=== PATIENT | male | born 1945 | race Caucasian/White ===

== ENCOUNTER 2019-12-25 11:40 | Emergency (ER) | payer MEDICARE ==
--- NOTE | 2019-12-25 15:26 | ED ---
Back Pain - HPI Summary HPI Summary: The patient is a 74 y/o male presenting to [facility] with a chief complaint of right flank pain onset last night with persistency. He reports that when the pain began last night, he placed a heating pad without any relief. Today, the pain has worsened rated 3/10 in severity. The pain is aggravated by deep breathing, lying down, and sitting, and the pain is alleviated by standing. He denies any issues with BMs, bowel or bladder incontinence, fevers, nausea, vomiting, or edema in the lower extremities. He endorses dark and odorous urine. He notes that his son had similar symptoms but was diagnosed with gallbladder issues. PMHx: kidney stones with lithotripsy, BPH, right inguinal hernia. Former smoker, daily EtOH, no substance use. Medications reviewed. Allergies noted. - History of Current Complaint Chief Complaint: EDBackInjuryPain Stated Complaint: LOW BACK PAIN PER PT Time Seen by Provider: 12/25/19 15:06 Hx Obtained From: Patient Onset/Duration: Sudden Onset, Still Present Onset/Duration: Started Hours Ago, Still Present Timing: Constant Back Pain Location: Is Discrete @ - right flank Severity Initially: Mild Severity Currently: Moderate Pain Intensity: 4 Pain Scale Used: 0-10 Numeric Character: Sharp Aggravating Symptom(s): Other - lying, sitting, deep breathing Alleviating Symptom(s): Other - standing Associated Signs And Symptoms: Positive: Flank Pain - right. Negative: Fever, Bladder Incontinence, Bowel Incontinence, Other - nausea, vomiting - Allergies/Home Medications Allergies/Adverse Reactions: Allergies Allergy/AdvReac Type Severity Reaction Status Date / Time Unable to Assess Allergy Verified 12/25/19 11:53 PMH/Surg Hx/FS Hx/Imm Hx Endocrine/Hematology History: Denies: Hx Diabetes Cardiovascular History: Denies: Hx Hypertension GI History: Reports: Other GI Disorders - inguinal hernia History: Reports: Hx Benign Prostatic Hyperplasia, Hx Kidney Stones - lithotripsy - Surgical History Surgical History: Yes Surgery Procedure, Year, and Place: lithotripsy kidney stones Infectious Disease History: No Infectious Disease History: Denies: Traveled Outside the [place] in Last 30 Days - Family History Known Family History: Positive: Other - gallbladder - Social History Alcohol Use: Daily Hx Substance Use: No Substance Use Type: Reports: None Hx Tobacco Use: Yes Smoking Status (MU): Former Smoker Review of Systems Negative: Fever, Chills Negative: Vomiting, Nausea, Other - bowel incontinence Positive: flank pain - right, other - dark and odorous urine. Negative: incontinence Negative: Edema All Other Systems Reviewed And Are Negative: Yes Physical Exam - Summary Physical Exam Summary: Constitutional: Well-developed, Well-nourished, Alert. (-) Distressed Skin: Warm, Dry HENT: Normocephalic; Atraumatic Eyes: Conjunctiva normal Neck: Musculoskeletal ROM normal neck. (-) JVD, (-) Stridor, (-) Tracheal deviation Cardio: Rhythm regular, rate normal, Heart sounds normal; Intact distal pulses; The pedal pulses are 2+ and symmetric. Radial pulses are 2+ and symmetric. Pulmonary/Chest wall: Effort normal. (-) Respiratory distress, (-) Wheezes, (-) Rales Abd: Soft, (-) tenderness, (-) Distension, (-) Guarding, (-) Rebound, Small reducible hernia in the right inguinal region Back: Patient localizing pain to the right flank without tenderness to palpation or percussion, (-) CVA tenderness Musculoskeletal: (-) Edema Neuro: Alert, Oriented x3 Psych: Mood and affect Normal : Normal penis, Circumcised, Normal testes, No swelling or tenderness Triage Information Reviewed: Yes Vital Signs On Initial Exam: Initial Vitals Temp Pulse Resp BP Pulse Ox 99.1 F 92 16 157/75 94 12/25/19 11:49 12/25/19 11:49 12/25/19 11:49 12/25/19 11:49 12/25/19 11:49 Vital Signs Reviewed: Yes Procedures - Sedation Patient Received Moderate/Deep Sedation with Procedure: No Diagnostics - Vital Signs Vital Signs Temp Pulse Resp BP Pulse Ox 12/25/19 14:30 100.4 F 89 18 108/74 95 12/25/19 11:49 99.1 F 92 16 157/75 94 - Laboratory Result Diagrams: 12/25/19 15:55 12/25/19 15:55 Lab Statement: Any lab studies that have been ordered have been reviewed, and results considered in the medical decision making process. Back Pain Course/Dx - Course Course Of Treatment: 74 y/o male presenting with right flank pain onset last night worsening today accompanied by odorous and dark urine. Denies changes in stool, fevers, nausea, vomiting, edema. No symptoms. History of kidney stones with lithotripsy, right inguinal hernia, BPH. Physical exam is significant for patient localizing pain to the right flank without tenderness to palpation or percussion, no CVA tenderness, small reducible hernia in the right inguinal region, normal exam. Blood work reveals elevated WBCs of 12.8 , elevated neutrophils 10.8, elevated monocytes of 1.3, total bili of 1.7. UA obtained to reveal 1+ protein, 2+ ketones, 1+ blood. Patient administered lactated ringers and Toradol for pain. The patient is a sign-out from Dr. Humphrey Yao MD, to Dr. Carine Hirsch MD, at change of shift at 1900 on 12/25/2019, pending Abd/Pel CT results and disposition. - Diagnoses Differential Diagnosis/HQI/PQRI: Positive: Other - renal calculi Provider Diagnoses: Flank pain Discharge ED - Sign-Out/Discharge Documenting (check all that apply): Sign-Out Patient Signing out patient TO: Carine Hirsch - Patient is a sign-out to Dr. Carine Hirsch MD, at 1900 on 12/25/2019, pending Abd/Pel CT results and disposition. - Discharge Plan Condition: Stable Referrals: Dunia Johnson MD [Primary Care Provider] - - Attestation Statements Document Initiated by Scribe: Yes Documenting Scribe: Alessia Guerra Provider For Whom Valdo is Documenting (Include Credential): Dr. Humphrey Yao MD Scribe Attestation: IAlessia, scribed for Dr. Humphrey Yao MD on 12/25/19 at 1904. Status of Scribe Document: Ready
[2019-12-25] MEDS ORDERED: Ketorolac INJ* 30 MG/ML 1 ML VIAL IV PUSH ONE (15:48)
[2019-12-25] MEDS ORDERED: Lactated Ringers 1000 ML Bag* 1,000 ML IV ONE (15:48)
[2019-12-25 16:03] LABS: ABS Lymphocytes 0.6 10^3/ul (1.0-4.8); ABS Monocytes 1.3 10^3/ul (0-0.8); ABS Neutrophils 10.8 10^3/ul (1.5-7.7); Hematocrit 41 % (42-52); Hemoglobin 14.2 g/dL (14.0-18.0); Mean Corpuscular HGB Conc 35 g/dL (31-36); Mean Corpuscular Hemoglobin 33 pg (27-31); Mean Corpuscular Volume 96 fL (80-94); Mean Platelet Volume 7.2 fL (7.4-10.4); Platelet Count 213 10^3/uL (150-450); Red Blood Count 4.28 10^6 /uL (4.18-5.48); Red Cell Distribution Width 13 % (10-15); White Blood Count 12.8 10^3/uL (3.5-10.8)
[2019-12-25 16:22] LABS: Urine Appearance Cloudy; Urine Bilirubin Negative (Negative); Urine Blood 1+ (Negative); Urine Color Yellow; Urine Glucose Negative (Negative); Urine Ketones 2+ (Negative); Urine Nitrite Negative (Negative); Urine Protein 1+(30 mg/dL) (Negative); Urine Specific Gravity 1.023 (1.010-1.030); Urine Urobilinogen Negative (Negative)
[2019-12-25 16:23] LABS: Albumin 3.9 g/dL (3.2-5.2); Albumin/Globulin Ratio 1.2 (1-3); BUN/Creatinine Ratio 17.7 (8-20); Calcium 8.9 mg/dL (8.6-10.3); EGFR African American 116.3 (>60); EGFR Non-African American 96.1 (>60); Globulin 3.2 g/dL (2-4); Indirect Bilirubin 1.3 mg/dL (0.3-1.0); Potassium 3.9 mmol/L (3.5-5.0); Total Bilirubin 1.7 mg/dL (0.2-1.0); Total Protein 7.1 g/dL (6.4-8.9)
[2019-12-25 16:40] LABS: Urine Bacteria Absent (Absent); Urine Red Blood Cell Trace(0-2/hpf) (Absent); Urine White Blood Cell Trace(0-5/hpf) (Absent)
--- NOTE | 2019-12-25 19:07 | ED ---
Progress - Progress Note Progress Note: This pt is a sign out from Dr. Yao to Dr. Hirsch at shift change [address] A/P interpretation and dispo. - Results/Orders Results/Orders: CT A/P: Right basilar infiltrate suggestive of pneumonia. No renal calculi or obstructive uropathy. Moderate prostatic enlargement. ED physician has reviewed this report. Re-Evaluation - Re-Evaluation First Eval Re-Evaluation Time: 19:26 Change: Improved Comment: I have discussed results with the patient and pain is resolved. Discussed symptoms that warrant immediate return to ED. Course/Dx - Course Course Of Treatment: This pt is a sign out from Dr. Yao to Dr. Hirsch at shift change 1900 12/25/[address] A/P interpretation and dispo. CT A/P shows the following: Right basilar infiltrate suggestive of pneumonia. No renal calculi or obstructive uropathy. Moderate prostatic enlargement. discussed at length with patient. He will be discharged home after being given Ceftin to treat his Dx of PNA. - Diagnoses Provider Diagnoses: Pneumonia Discharge ED - Sign-Out/Discharge Documenting (check all that apply): Patient Departure - discharge , Receiving Sign-Out Receiving patient FROM: Humphrey Yao - Discharge Plan Condition: Stable Disposition: HOME Prescriptions: Azithromyxin CHRIS (NF) [Z-Chris (Zithromax) 250 mg tabs #6] 2 tab PO .TODAY, THEN 1 DAILY #6 tab Cefuroxime 500 MG TAB (NF) [Ceftin 500 MG TAB (NF)] 500 mg PO BID #20 tab Patient Education Materials: Pneumonia (ED) Referrals: Dunia Johnson MD [Primary Care Provider] - 2 Days Additional Instructions: PLEASE FOLLOW UP WITH YOUR PRIMARY CARE PROVIDER IN 2-3 DAYS AND RETURN TO THE EMERGENCY DEPARTMENT FOR ANY NEW OR WORSENING SYMPTOMS. Take prescribed medications as directed. - Billing Disposition and Condition Condition: STABLE Disposition: Home - Attestation Statements Document Initiated by Scribe: Yes Documenting Scribe: Austin Multani Provider For Whom Scribe is Documenting (Include Credential): Carine Hirsch MD Scribe Attestation: Austin Ross, scribed for Carine Hirsch MD on 12/26/19 at 0233. Scribe Documentation Reviewed: Yes Provider Attestation: The documentation as recorded by the scribe, Austin Multani accurately reflects the service I personally performed and the decisions made by me, Carine Hirsch MD Status of Scribe Document: Viewed
[2019-12-25] MEDS ORDERED: cefTRIAXone(*) 2 GM in NS 0.9% 100 ML* 100 ML IVPB ONE (19:20)
[2019-12-25 20:46] VITALS: BP 133/54
== END 2019-12-25 20:45 | disposition home or self-care (01) ==
LOC: ED 11:40
DX: J18.9 Pneumonia, unspecified organism (principal); R10.84 Generalized abdominal pain; N40.0 Benign prostatic hyperplasia without lower urinary tract symptoms; Z87.891 Personal history of nicotine dependence; Z87.442 Personal history of urinary calculi
CPT/HCPCS: 36415; 74176; 80048; 80076; 81003; 81015; 83690; 85025; 87086; 96361; 96365; 96375; 99282; J0696; J1885

== ENCOUNTER 2019-12-31 18:37 | Observation (INO) | payer MEDICARE ==
--- OUTSIDE RECORDS SUMMARY | 2019-12-31 18:57 | XMS REPORT | Continuity of Care Document ---
:1945 External Reference #:[id number] Demographics Phone Unavailable Preferred Language Unknown Marital Status Unknown Scientologist Affiliation Unknown Race Unknown Ethnic Group Unknown Author Name Patricia Lopez Description No Information Available Social History Type Date Description Comments Sex Unknown Allergies, Adverse Reactions, Alerts Description No Information Available Medications Description No Information Available Immunizations Description No Information Available Vital Signs Description No Information Available Results Description No Information Available Procedures Description No Information Available Medical Devices Description No Information Available Encounters Description No Information Available Assessments Description No Information Available Plan of Treatment No Information Available Functional Status Description No Information Available Mental Status Description No Information Available Referrals Description No Information Available
[2019-12-31 19:00] LABS: ABS Eosinophils 0.2 10^3/ul (0-0.6); ABS Lymphocytes 1.1 10^3/ul (1.0-4.8); ABS Monocytes 0.8 10^3/ul (0-0.8); Eosinophil % 2.2 %; Hematocrit 41 % (42-52); Lymphocyte % 11.8 %; Mean Corpuscular HGB Conc 35 g/dL (31-36); Mean Corpuscular Hemoglobin 33 pg (27-31); Mean Corpuscular Volume 95 fL (80-94); Mean Platelet Volume 6.7 fL (7.4-10.4); Nucleated Red Blood Cells % 0.1; Platelet Count 344 10^3/uL (150-450); Red Blood Count 4.29 10^6 /uL (4.18-5.48); Red Cell Distribution Width 13 % (10-15)
--- NOTE | 2019-12-31 19:02 | ED ---
Shortness of Breath - HPI Summary HPI Summary: 74 year old M referred to [facility] complains of shortness of breath for several days. Patient had outpatient Chest CT done earlier today 12/31/2019 which showed PE. Patient was referred to the ED. He states his primary care provider ordered one because patient's friend was concerned about patient having hx atrial fibrillation and being recently dx pneumonia. Patient was seen last 12/25 in the ED, dx pneumonia, was placed on antibiotics, and discharged. Patient states he has been improving since then. He states chest tightness and painful breathing have improved. Patient denies pain or swelling in bilateral lower extremities. The patient rates the pain 1/10 in severity. Symptoms aggravated by exertion. Symptoms alleviated by prescription antibiotics. Medications reviewed. No hx DVT, PE, MT, diabetes, cardiac stent placement. - History of Current Complaint Chief Complaint: EDShortnessOfBreath Time Seen by Provider: 12/31/19 19:00 Hx Obtained From: Patient Onset/Duration: Lasting Days, Still Present Timing: Constant Current Severity: Mild Aggravating Factors: Other - exertion Alleviating Factors: Other - prescription antibiotics Associated Signs & Symptoms: Negative - pain or swelling in BLE - Allergy/Home Medications Allergies/Adverse Reactions: Allergies Allergy/AdvReac Type Severity Reaction Status Date / Time Unable to Assess Allergy Verified 12/31/19 18:41 PMH/Surg Hx/FS Hx/Imm Hx Endocrine/Hematology History: Denies: Hx Diabetes Cardiovascular History: Reports: Hx Atrial Fibrillation Denies: Hx Hypertension, Hx Myocardial Infarction Respiratory History: Reports: Hx Pneumonia GI History: Reports: Other GI Disorders - inguinal hernia History: Reports: Hx Benign Prostatic Hyperplasia, Hx Kidney Stones - lithotripsy Denies: Hx Renal Disease - Surgical History Surgery Procedure, Year, and Place: tonsils. lithotripsy Infectious Disease History: No Infectious Disease History: Denies: Traveled Outside the [place] in Last 30 Days - Family History Known Family History: Positive: Other - gallbladder - Social History Alcohol Use: Daily Alcohol Amount: ~1-2 glasses wine with dinner Hx Substance Use: No Substance Use Type: Reports: None Hx Tobacco Use: Yes Smoking Status (MU): Former Smoker Review of Systems Positive: Shortness Of Breath Musculoskeletal: Negative - pain or swelling in BLE All Other Systems Reviewed And Are Negative: Yes Physical Exam - Summary Physical Exam Summary: Constitutional: Well-developed, Well-nourished, Alert. (-) Distressed Skin: Warm, Dry HENT: Normocephalic; Atraumatic Eyes: Conjunctiva normal Neck: Musculoskeletal ROM normal neck. (-) JVD, (-) Stridor, (-) Tracheal deviation Cardio: Rhythm regular, rate normal, Heart sounds normal; Intact distal pulses; The pedal pulses are 2+ and symmetric. Radial pulses are 2+ and symmetric. (-) Murmur Pulmonary/Chest wall: Effort normal. (-) Respiratory distress, (-) Wheezes, (-) Rales Abd: Soft, (-) tenderness, (-) Distension, (-) Guarding, (-) Rebound Musculoskeletal: (-) Edema Lymph: (-) Cervical adenopathy Neuro: Alert, Oriented x3 Psych: Mood and affect Normal Triage Information Reviewed: Yes Vital Signs On Initial Exam: Initial Vitals Temp Pulse Resp BP Pulse Ox 98.1 F 83 18 150/82 99 12/31/19 18:38 12/31/19 18:38 12/31/19 18:38 12/31/19 18:38 12/31/19 18:38 Vital Signs Reviewed: Yes Procedures - Sedation Patient Received Moderate/Deep Sedation with Procedure: No Diagnostics - Vital Signs Vital Signs Temp Pulse Resp BP Pulse Ox 12/31/19 18:38 98.1 F 83 18 150/82 99 - Laboratory Lab Results: Lab Results 12/31/19 Range/Units 18:52 WBC 9.0 (3.5-10.8) 10^3/uL RBC 4.29 (4.18-5.48) 10^6 /uL Hgb 14.0 (14.0-18.0) g/dL Hct 41 L (42-52) % MCV 95 H (80-94) fL MCH 33 H (27-31) pg MCHC 35 (31-36) g/dL RDW 13 (10-15) % Plt Count 344 (150-450) 10^3/uL MPV 6.7 L (7.4-10.4) fL Neut % (Auto) 77.2 % Lymph % (Auto) 11.8 % Petroleum % (Auto) 8.5 % Eos % (Auto) 2.2 % Baso % (Auto) 0.3 % Absolute Neuts (auto) 7.0 (1.5-7.7) 10^3/ul Absolute Lymphs (auto) 1.1 (1.0-4.8) 10^3/ul Absolute Monos (auto) 0.8 (0-0.8) 10^3/ul Absolute Eos (auto) 0.2 (0-0.6) 10^3/ul Absolute Basos (auto) 0.0 (0-0.2) 10^3/ul Absolute Nucleated RBC 0.0 10^3/ul Nucleated RBC % 0.1 Result Diagrams: 12/31/19 18:52 12/31/19 18:52 Lab Statement: Any lab studies that have been ordered have been reviewed, and results considered in the medical decision making process. - EKG 1844 Cardiac Rate: NL - 76 BPM EKG Rhythm: Sinus Rhythm Summary of EKG Findings: No ischemic changes. ED physician has reviewed and interpreted this EKG Course/Dx - Course Course Of Treatment: 74 y/o M referred to [facility] complains of shortness of breath for several days. Patient had outpatient Chest CT done earlier today 12/31 which showed PE. Hx atrial fibrillation. Dx pneumonia last week. He states his symptoms have been improving on antibiotics. Physical exam unremarkable. An EKG shows sinus rhythm 76 BPM and no ischemic changes. Bloodwork results with no significant abnormalities except for Hct 41, MCV 95, MCH 33, MPV 6.7, INR 1.11, APTT 41.7. In the ED course, the patient was given Eliquis. Spoke with Dr. Dillon hospitalist who agrees to admit patient. - Diagnoses Provider Diagnoses: Bilateral pulmonary embolism - Physician Notifications Discussed Care of Patient With: Patrick Dillon Time Discussed With Above Provider: 19:16 Instructed by Provider To: Admit As Inpatient Discharge ED - Sign-Out/Discharge Documenting (check all that apply): Patient Departure - Discharge Plan Condition: Stable Disposition: ADMITTED TO [facility] Referrals: Dunia Johnson MD [Primary Care Provider] - - Billing Disposition and Condition Condition: STABLE Disposition: Admitted to [facility] - Attestation Statements Document Initiated by Scribe: Yes Documenting Scribe: Diane Sherman Provider For Whom Scribe is Documenting (Include Credential): Silvano Cole, DO Scribe Attestation: IDiane, scribed for Silvano Cole DO on 12/31/19 at 2058. Scribe Documentation Reviewed: Yes Provider Attestation: The documentation as recorded by the scribeDiane accurately reflects the service I personally performed and the decisions made by me, Silvano Cole DO Status of Scribtoñito Document: Viewed
[2019-12-31 19:10] LABS: Activated Partial Thrombo Time 41.7 seconds (26.0-38.0); INR 1.11 (0.82-1.09)
[2019-12-31 19:17] LABS: Albumin 3.7 g/dL (3.2-5.2); Albumin/Globulin Ratio 1.2 (1-3); BUN/Creatinine Ratio 18.9 (8-20); Calcium 8.6 mg/dL (8.6-10.3); EGFR African American 125.5 (>60); EGFR Non-African American 103.7 (>60); Globulin 3.2 g/dL (2-4); Potassium 3.9 mmol/L (3.5-5.0); Total Bilirubin 0.7 mg/dL (0.2-1.0); Total Protein 6.9 g/dL (6.4-8.9)
[2019-12-31] MEDS ORDERED: Apixaban* 5 MG TAB PO ONE (19:20)
[2019-12-31] MEDS ORDERED: Acetaminophen TAB* 325 MG PO PRN (20:13)
[2019-12-31] MEDS ORDERED: Ondansetron INJ* 2 MG/ML VIAL IV PRN (20:13)
[2019-12-31] MEDS ORDERED: Apixaban* 5 MG TAB PO SCH (21:00)
--- NOTE | 2019-12-31 23:14 | HP ---
CC: Dr. Dunia Johnson * HISTORY AND PHYSICAL: DATE OF ADMISSION: 12/31/19 PRIMARY CARE PROVIDER: Dr. Dunia Johnson. ATTENDING PHYSICIAN WHILE IN THE HOSPITAL: Dr. Dillon * (report dictated by Phani Daley NP). CHIEF COMPLAINT: Shortness of breath. HISTORY OF PRESENTING ILLNESS: Mr. Burrows is a 74-year-old male patient, who was previously healthy, has a history of atrial fibrillation, it was paroxysmal in nature, who states that around [place] time, he was pushing a manplow, he called it, and he noticed some soreness in his right groin. He developed some pain there. He eventually developed a hernia which he is following outpatient for. He noted that things got better from that standpoint and noted that he has limited his mobility somewhat, but he was not bedridden and then in the middle or end of November, he had an episode of low back pain, he felt stiff. He eventually recovered from this and following that, he developed a sharp pain in the right upper quadrant and in the right flank that he described as a sharp stabbing pain that got worse with any type of position. He was concerned. He talked to his son about it. They felt that maybe it was gallstone. Basically, he went to the ER last week, had a CT of the abdomen and pelvis and there was a right lower lobe infiltrate noted. He was started on antibiotics and he notes that in the timing of this, he also was feeling somewhat short of breath at that point. He was having chills, feeling feverish at times. He was diagnosed with pneumonia and was treated. He was concerned though because he noted that any time he took a deep breath, he had sharp pain still and he was still feeling winded, worse so with exertion and having chest pain when he took a deep breath, so he discussed this with his primary. A D- dimer was obtained, it was greater than 1050. CTA was obtained outpatient, which did show bilateral subsegmental PEs. The patient was referred to the ER for further evaluation. He says he is not feeling short of breath at rest. He denies chest pain currently. He denies feeling lightheaded or dizzy. He states that he has not had any recent surgery, no trips, no airplane rides, no history of clotting disorders, although he does state that he noted to his that if he cuts himself he feels that he clots quicker. No family history of clotting disorders either and no cancers reported. He came in to the hospital, he was evaluated down here in the ED and because of the bilateral pulmonary emboli, we were asked to evaluate for admission PAST MEDICAL HISTORY: Significant for paroxysmal AFib. PAST SURGICAL HISTORY: He has had tonsillectomy. HOME MEDICATIONS: Include: 1. Tylenol 500 mg p.o. every 6 hours as needed. 2. Ceftin 500 mg p.o. b.i.d. He is to complete a 10-day course. He states that he has 3 more days left of his medication. ALLERGIES TO MEDICATIONS: No known drug allergies. FAMILY HISTORY: His mother had a CVA late in life. Father had a history of heart disease and pacemaker and diabetic. SOCIAL HISTORY: He drinks wine with dinner. Former smoker. He is . He has 3 children. Surrogate decision maker is his son. 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 REVIEW OF SYSTEMS: Again, he did have chills last week but none now. He denied any significant weight change. No double vision. No ear discharge, no rhinorrhea. No sore throat, no thyroid enlargement. Chest pain per HPI. There was shortness of breath particularly with exertion. He does admit to having lower right inguinal pain but no nausea, no vomiting. No dysuria, no frequency. No seizure, no loss of consciousness. No pruritus and no skin ulcerations. Review of 14 systems completed, all others were negative. PHYSICAL EXAMINATION GENERAL: At this time, Mr. Burrows is a 74-year-old male patient, he is well nourished, well developed. He is sitting in the ED stretcher. He does not appear to be in any acute distress. VITAL SIGNS: Blood pressure 156/75 with a pulse of 86, respirations 17, O2 saturation 99% on room air, temperature 98.1. HEENT: Head: Atraumatic, normocephalic. Eyes: EOMs are intact. Sclerae were anicteric and not pale. Throat: Oral mucosa appears to be moist. No oropharyngeal erythema. NECK: Supple. LUNGS: Clear to auscultation bilaterally. No wheezes, rales, or rhonchi. HEART: Sounds S1, S2. Regular rate and rhythm. No murmurs, rubs, or gallops. ABDOMEN: Soft, flat, nontender. He does have a small inguinal hernia, which is nontender. Bowel sounds are present. EXTREMITIES: Pulses were 2+ throughout. No peripheral edema. He is moving all 4 extremities with 5/5 strength. NEUROLOGICAL: He is awake, alert, and oriented x3. Tongue midline. Silk Screener were equal. No gross focal deficits were noted. Speech is clear. No drift. SKIN: Intact. LABORATORY DATA/DIAGNOSTIC STUDIES: WBC 9.0, RBC of 4.39, hemoglobin of 14.0, hematocrit of 41, platelet count of 344. INR 1.11, PTT 41.7. Sodium 137, potassium 3.9, chloride 102, bicarb 25, BUN 14, creatinine 0.74, glucose 88, calcium 8.6. Total bili 0.7. AST 29, ALT 40, alk phos 68. Troponin 0.00. BNP 68. Albumin 3.7. He had an outpatient CTA which showed impression: There are central filling defects in the right pulmonary artery extending into all lobar branches and was in the left lower lobe pulmonary artery and segmental branches of the left upper lobe pulmonary artery consistent with bilateral acute pulmonary emboli, but no central saddle embolus. There is likely left lower lobe peripheral pulmonary infarct. There is small left and small to moderate right pleural effusion and likely associated dependent atelectasis. He had an abdominal pelvis CT obtained on 12/25/19 which showed impression: Right basilar infiltrate suggestive of pneumonia. No renal calculi or obstructive uropathy. Moderate prostatic enlargement. He also had an EKG obtained today as well, I do not have a previous for comparison, but it does show a normal sinus rhythm with a rate of 76, no ST elevation or T-wave inversions were noted. Old medical records were reviewed. ASSESSMENT AND PLAN: Mr. Burrows is a 74-year-old male patient coming into the ED today with complaints of again chest discomfort, worse with taking a deep breath, shortness of breath in the setting of recent pneumonia, also was found to have pulmonary embolism. He will be admitted under observation status for: 1. Pulmonary embolism. I am unsure if this is provoked or not. He did have this hernia that developed back in October and he says since then his activity level has been down, but he does go up and down a flight of stairs several times a day given where his office is, so he in the sense has not been bedridden , no recent surgeries, no recent trauma, and no recent long trips or travel. I do think it is warranted to get a hypercoagulable panel given the extent of the pulmonary embolisms. I will start him on Eliquis 10 mg twice a day for 10 days and 5 mg p.o. b.i.d. We will also get an echocardiogram. We will place him on telemetry. We will hydrate him, he can eat, and we will continue to follow. He may need an outpatient hematology evaluation that can be done in the outpatient setting. I will also get ultrasounds of lower extremities to make sure that there is not any clot burden. 2. Atrial fibrillation. Not an active issue at this point and we will monitor him on telemetry. 3. Recent pneumonia. We will continue his Ceftin for a total of 3 more days. 4. Hernia. He can follow up with his PCP for this. 5. DVT prophylaxis: He will be on Eliquis 10 mg twice a day for 7 days and then 5 mg twice day thereafter. 6. Code status: Full code. 7. Fluids, electrolytes, and nutrition: He can have a regular diet. TIME SPENT: Time spent on the admission was 60 minutes, greater than half the time was spent [id number] with the patient obtaining my history of physical; the other half time was spent going over the plan of care with the patient and implementing plan of care. I did discuss the plan of care with my attending, Dr. Dillon; he is in agreement. PHANI DALEY, TITO [id number]/CPS #: [id number] DEREK
[2020-01-01 04:56] LABS: ABS Eosinophils 0.3 10^3/ul (0-0.6); ABS Lymphocytes 1.4 10^3/ul (1.0-4.8); ABS Monocytes 0.8 10^3/ul (0-0.8); ABS Neutrophils 5.1 10^3/ul (1.5-7.7); Hematocrit 37 % (42-52); Hemoglobin 12.7 g/dL (14.0-18.0); Lymphocyte % 17.8 %; Mean Corpuscular HGB Conc 35 g/dL (31-36); Mean Corpuscular Hemoglobin 32 pg (27-31); Mean Corpuscular Volume 93 fL (80-94); Mean Platelet Volume 6.7 fL (7.4-10.4); Platelet Count 322 10^3/uL (150-450); Red Blood Count 3.93 10^6 /uL (4.18-5.48); Red Cell Distribution Width 13 % (10-15); White Blood Count 7.7 10^3/uL (3.5-10.8)
[2020-01-01 05:02] LABS: INR 1.38 (0.82-1.09)
[2020-01-01 05:13] LABS: BUN/Creatinine Ratio 16.9 (8-20); Calcium 8.1 mg/dL (8.6-10.3); EGFR African American 131.6 (>60); EGFR Non-African American 108.8 (>60); Potassium 4.6 mmol/L (3.5-5.0)
[2020-01-01 07:13] LABS: Magnesium 2.2 mg/dL (1.9-2.7)
[2020-01-01 07:31] LABS: TSH (Thyroid Stimulating Horm) 2.6 mcIU/mL (0.34-5.60)
[2020-01-01] MEDS ORDERED: Apixaban* 5 MG TAB PO SCH (09:00)
--- NOTE | 2020-01-01 09:07 | CONSULT ---
Subjective Date of Service: 01/01/20 Interval History: Admission Date: 12/31/19 consult date 01/01/[address] Dunia Johnson Service: Hopsitalist CC: shortness of breath Reason for consult: PE, paroxysmal atrial fibrillation. HISTORY OF PRESENTING ILLNESS: Mr. Burrows is a 74-year-old man. He was previously healthy. He has had intermittent palpitations or > 10 years but he tells me never received a formal diagnosis of atrial fibrillation but on aspirin after a previously equivocal holter monitor in 2012. He took a trip around the country with relative this past summer. He felt well the rest of the year. He has no known cancers or significant trauma or recent surgery. He has had issues with dyspnea, more recently pleuritic chest pain and diagnosed with PE and is now admitted and being anticoagulated. He had the longstanding palpitation symptoms while admitted that correlated with paroxysmal atrial fibrillation on monitoring. No CHF, HTN, DM, TIA/CVA or known vascular disease PAST MEDICAL HISTORY: as above PAST SURGICAL HISTORY: He has had tonsillectomy. ALLERGIES TO MEDICATIONS: No known drug allergies. FAMILY HISTORY: His mother had a CVA late in life. Father had a history of heart disease and pacemaker and diabetic. SOCIAL HISTORY: He drinks 2 glasses of wine with dinner. Remote smoker. He is . He has 3 children. Surrogate decision maker is his son. 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 Medications Active Medications: Acetaminophen (Tylenol Tab*) 650 mg PO Q4H PRN PRN Reason: PAIN - MILD Apixaban (Eliquis*) 10 mg PO 0900,2100 [facility] Stop: 01/07/20 21:59 Apixaban (Eliquis*) 5 mg PO BID [facility] Cefuroxime Axetil (Ceftin 250 Mg Tab) 500 mg PO BID [facility] Last Admin: 12/31/19 22:05 Dose: 500 mg Ondansetron HCl (Zofran Inj*) 4 mg IV Q6H PRN PRN Reason: NAUSEA Home Medications: Acetaminophen [Tylenol Extra Strength] 500 mg PO Q6HR PRN 12/25/19 [History Confirmed 12/31/19] Cefuroxime 500 MG TAB (NF) [Ceftin 500 MG TAB (NF)] 500 mg PO BID #20 tab [Rx Confirmed 02/12/20] Review of Systems - Measurements Intake and Output: Intake and Output Last 24 Hours 12/30/19 12/31/19 01/01/20 01/02/20 06:59 06:59 06:59 06:59 Intake Total 0 Output Total 0 450 Balance 0 -450 Weight 140 lb 11.2 oz Intake: Oral 0 Output: Urine 0 450 Other: # Bowel Movements 0 - Review of Systems Constitutional Symptoms: Negative: Weight Gain, Weight Loss, Weakness, Fatigue, Fever, Night Sweats Dermatology: Negative: Rash, Skin Lesions HEENT: Negative: Change in Hearing, Vertigo Eyes: Negative: Change in Vision, Double Vision Thyroid: Positive: Palpitations Negative: Change in Skin/Hair Pulmonary: Positive: Shortness of Breath Negative: Home Oxygen Cardiology: Positive: Chest Pain, Shortness of Breath, Palpitations Negative: Faintness, Syncope, Orthopnea Gastroenterology: Negative: Blood in Stools, Haematemesis, Melena Genital - Urinary: Negative: Dysuria, Hematuria Musculoskeletal: Negative: Joint Pain, Joint Stiffness Endocrinology: Positive: Diabetic Foot Ulcers Negative: Obesity, Diabetes Hematologic/Lymphatic: Negative: Use of Anticoagulant, Use of Antiplatelet Drugs Neurology: Negative: Hx of Stroke\TIA, Hx Seizures Psychiatry: Negative: Unusual Anxiety, Suicidal Ideation Allergic/Immunologic: Negative: Hx HIV, Immunocompromise Review of Systems Statement: All other review of systems negative, unless stated above. Objective Vital Signs: Temp Pulse Resp BP Pulse Ox 98.6 F 73 16 130/64 94 01/01/20 07:58 01/01/20 07:58 01/01/20 07:58 01/01/20 07:58 01/01/20 07:58 Oxygen Devices in Use Now: None Appearance: nad, pleasant Ears/Nose/Mouth/Throat: Clear Oropharnyx, Mucous Membranes Moist Neck: NL Appearance and Movements; NL JVP, Trachea Midline Respiratory: Symmetrical Chest Expansion and Respiratory Effort, Clear to Auscultation Cardiovascular: NL Sounds; No Murmurs; No JVD, RRR, No Edema Abdominal: NL Sounds; No Tenderness; No Distention Extremities: No Edema Skin: No Rash or Ulcers Neurological: Alert and Oriented x 3 Laboratory Results: 01/01/20 04:51 01/01/20 04:51 INR (Anticoag Therapy) 1.38 (0.82-1.09) H 01/01/20 04:51 APTT 41.7 seconds (26.0-38.0) H 12/31/19 18:52 Total Bilirubin 0.70 mg/dL (0.2-1.0) 12/31/19 18:52 AST 29 U/L (13-39) 12/31/19 18:52 ALT 40 U/L (7-52) 12/31/19 18:52 Alkaline Phosphatase 68 U/L (34-104) 12/31/19 18:52 B-Natriuretic Peptide 68 pg/mL (<=100) 12/31/19 18:52 Total Protein 6.9 g/dL (6.4-8.9) 12/31/19 18:52 Albumin 3.7 g/dL (3.2-5.2) 12/31/19 18:52 Globulin 3.2 g/dL (2-4) 12/31/19 18:52 Albumin/Globulin Ratio 1.2 (1-3) 12/31/19 18:52 TSH 2.60 mcIU/mL (0.34-5.60) 01/01/20 04:47 12/31/19 18:52 Troponin I 0.00 Diagnostic Imaging: Exam Date: 12/31/19 VL LOWER EXT VEINS BILATERAL IMPRESSION: 1. The mid left femoral vein is noncompressible but Doppler flow is maintained, consistent with nonocclusive acute DVT. 2. No acute DVT in the right lower extremity. Exam Date: 12/31/19 CTA CHEST IMPRESSION: 1. There are central filling defects in the right pulmonary artery extending into all lobar branches and within the left lower lobe pulmonary artery and segmental branches of the left upper lobe pulmonary artery consistent with bilateral acute pulmonary embolism but no central saddle embolus. 2. There is likely left lower lobe peripheral pulmonary infarct. 3. There is small left and small to moderate right pleural effusion and likely associated dependent atelectasis. EKG Data: ekg 01/01/2020 odilon DARNELL ekg Assessment/Plan 1. DVT/PE - Normal BNP, troponin and normal RV size/function 2. Paroxysmal atrial fibrillation - longstanding - chads2-vasc score 1 (age) - Continue PE evaluation and treatment per Primary service. - Start toprol 25 mg po daily (ordered) - Will arrange cardiology follow up and pending above ? lifelong anticoagulation Thank you for allowing me to participate in the cardiovascular care of this patient, please do not hesitate to contact me with questions or concerns.
[2020-01-01] MEDS ORDERED: Metoprolol Succinate XL TAB* 25 MG PO SCH (10:00)
--- NOTE | 2020-01-01 10:07 | ECHO ---
*[facility]* [place] [address] Fax #: [phone] Transthoracic Echocardiogram Patient: Kamlesh Burrows : 1945 Study Date: 01/01/2020 Age: 74 Gender: M HR: 71 bpm Height: 70 in /177.8 cm BSA: 1.73 m^2 Weight: 134.7 lb /61.2 kg BMI: 19.4 kg/m^2 *Welder Assistant: * Jovanna Ocampo RDCS RN *Referring Physician: * Phani DaleyReading Physician: * Pernell Pelayo MD Indications: SOB. Pulmonary Embolism. History: Paroxysmal Atrial fibrillation. Recent pneumonia. Risk factors: Former tobacco use. Conclusions Summary: - Left ventricle: The cavity size is normal. Wall thickness is normal. Systolic function is normal. The estimated ejection fraction is 55-60%. Wall motion is normal; there are no regional wall motion abnormalities. - Right ventricle: The cavity size is normal. Systolic function is normal. - Tricuspid valve: There is trace regurgitation. - Pulmonary arteries: Systolic pressure is within the normal range, estimated to be 27 mm Hg. Recommendations: None prior for comparison at time of interpretation Study data: Transthoracic echocardiogram. Procedure: Transthoracic echocardiography was performed. Image quality was fair. The study was technically limited due to body habitus. Complete 2D, spectral Doppler, and color flow Doppler. Location: Bedside. Patient status: Observation. Patient room number: 445-01. Rhythm: Normal sinus rhythm. Findings Left ventricle: The cavity size is normal. Wall thickness is normal. Systolic function is normal. The estimated ejection fraction is 55-60%. Wall motion is normal; there are no regional wall motion abnormalities. There is no consistent Doppler evidence of clinically significant diastolic dysfunction. Right ventricle: The cavity size is normal. Systolic function is normal. Left atrium: The atrium is normal in size. Right atrium: The atrium is normal in size. Mitral valve: The leaflets are mildly thickened. There is no evidence of stenosis. There is trace regurgitation. Aortic valve: Not well visualized. The leaflets are mildly thickened. There is no evidence of stenosis. There is trace to mild regurgitation. Tricuspid valve: The leaflets are normal thickness. There is trace regurgitation. Pulmonic valve: Not visualized. Aorta: Aortic root: The aortic root is poorly visualized. Ascending aorta: The ascending aorta is not visualized. Aortic arch: The aortic arch is not dilated. Pericardium: There is no significant pericardial effusion. Pulmonary arteries: Not well visualized. Systolic pressure is within the normal range, estimated to be 27 mm Hg. Systemic veins: Inferior vena cava: The vessel is normal in size. There is (< 50%) respiratory change in the IVC dimension. Measurements Left ventricle Value Ref Right atrium continued Value Ref BECKI, LAX (L) 3.7 cm 4.2 - SI dim, ES, A4C 3.4 cm 3.4 - 5.3 5.8 Estimated RAP 8 mm Hg --------- ESD, LAX 2.5 cm 2.5 - 4.0 Aortic valve Value Ref FS, LAX 33 % 25 - 43 Peak v, S 1.4 m/sec --------- PW, ED 1.0 cm 0.6 - VTI, S 30.3 cm --------- 1.0 Mean grad, S 5.0 mm Hg --------- IVS/PW, ED 0.81 -------- Peak grad, S 8.0 mm Hg --------- E', lat cat, TDI 13.0 cm/sec >=10.0 LVOT/AV, VTI ratio 0.77 -- ------- E/e', lat cat, TDI 6 -------- E', med cat, TDI 10.0 cm/sec >=7.0 Mitral valve Value Re f E/e', med cat, TDI 8 -------- Peak E 0.79 m/sec ----- ---- E', avg, TDI 11.5 cm/sec -------- Peak A 0.89 m/sec ----- ---- E/e', avg, TDI 7 <=14 Decel time 179 ms -- ------- Peak grad, D 2.5 mm Hg --------- LVOT Value Ref Peak E/A ratio 0.89 --------- Peak torin, S 1.2 m/sec -------- VTI, S 23.2 cm -------- Tricuspid valve Value Ref Peak grad, S 6 mm Hg -------- TR peak v 2.2 m/sec <=2.8 Mean grad, S 3 mm Hg -------- Peak RV-RA grad, S 19 mm Hg --------- Ventricular septum Value Ref Aortic arch Value Ref IVS, ED 0.8 cm 0.6 - Arch diam 2.2 cm --------- 1.0 Decending aorta Value Ref Right ventricle Value Ref Leroy peak torin 1 m/sec --------- BECKI minor ax, A4C 3.5 cm 1.9 - mid 3.5 Pulmonary artery Value Ref Pressure, S 27 mm Hg -------- Pressure, S 27.0 mm Hg --------- Left atrium Value Ref Inferior vena cava Value Ref LA ID 3.3 cm -------- Diam 1.9 cm --------- SI dim ES, LAX 3.3 cm -------- ML dim, A4C 3.8 cm -------- SI dim, A4C 3.5 cm -------- Right atrium Value Ref ML dim, ES, A4C 4.1 cm 2.6 - 4.4 Legend: (L) and (H) poncho values outside specified reference range. Prepared and electronically signed by Pernell Pelayo MD 01/01/2020 10:03
[2020-01-01 11:36] VITALS: BP 124/62
--- NOTE | 2020-01-01 20:20 | DS ---
CC: Dr. Dunia Johnson * DISCHARGE SUMMARY: DATE OF ADMISSION: 12/31/19 DATE OF DISCHARGE: 01/01/20 PRIMARY CARE PROVIDER: Dr. Dunia Johnson. ATTENDING PHYSICIAN: Dr. Karine Perdue * (dictated by Jillian Hsieh, TITO) . PRIMARY DIAGNOSES: 1. Pulmonary embolism. 2. Atrial fibrillation. 3. Recent pneumonia. 4. Hernia. STUDIES WHILE IN THE HOSPITAL: 1. EKG: Normal sinus rhythm with a rate of 76. No ST elevation or T-wave inversions. 2. CTA: There are central filling deficits in the right pulmonary artery extending to the lobar branches and was in the left lower lobe pulmonary artery and segmental branches of the left upper lobe pulmonary artery consistent with bilateral acute pulmonary emboli, but no central saddle embolus. There is likely left lower lobe peripheral pulmonary infarct. There is a small left and small to moderate right pleural effusion and likely associated dependent atelectasis. 3. Transthoracic echocardiogram: Left ventricle: The cavity size is normal. Wall thickness is normal. Systolic function is normal. Estimated ejection fraction is 55% to 60%. Wall motion is normal. There are no regional wall abnormalities. Right ventricle: The cavity size is normal. Systolic function is normal. Tricuspid: There is trace regurgitation. Pulmonary arteries: Systolic pressure is within normal range, estimated to be 27 mmHg. 3. Venous Doppler: The mid left femoral vein is noncompressible, but Doppler flow is maintained consistent with nonocclusive acute DVT. No acute DVT in the right lower extremity. DISCHARGE HOME MEDICATIONS: New home medications: 1. Eliquis 10 mg p.o. b.i.d. x6 days to equal 7 days of treatment. 2. Eliquis 5 mg p.o. b.i.d., starting on 01/08/20 after 7 days of 10 mg p.o. b.i.d. 3. Metoprolol succinate XL 25 mg p.o. daily. Continued home medications: 1. Tylenol 500 mg p.o. q.6 hours p.r.n. 2. Ceftin 500 mg p.o. b.i.d. HISTORY OF PRESENT ILLNESS/HOSPITAL COURSE: Mr. Burrows is a 74-year-old male with a past medical history significant for atrial fibrillation, who presented to the emergency department with shortness of breath on 12/31/19. Please see history and physical dictated by Phani Daley NP for complete summary of events leading up to hospitalization, but in short, the patient was recently diagnosed with pneumonia, but then saw his primary care given he was having difficulty taking a deep breath, had sharp pain and had a D-dimer obtained which was greater than 1050. Outpatient CTA was performed and bilateral subsegmental PEs were found. The patient was then referred to the ER for further evaluation. The patient was admitted to the hospital and shortly after his admission was noted to have a run of AFib with RVR. Given this, Cardiology was consulted. Meanwhile, the patient was started on treatment dose of Eliquis for pulmonary embolism. The patient also underwent an echocardiogram as mentioned above. Dr. Pelayo from Cardiology evaluated the patient today. It is noted that there has been some discussion of AFib for several years for this patient, but has never been caught on telemetry. Since it was caught here in the hospital, the patient was started on metoprolol succinate XL 25 mg p.o. daily. The patient has had no other events on telemetry. The patient reports he feels well and looks forward to discharge. The patient ambulated in the unit without shortness of breath and maintained his O2 saturation. The patient is stable for discharge home. Vital Signs: Temp 98.6, HR 73, RR 16, O2 saturation 94% on room air, BP 130/64. REVIEW OF SYSTEMS: A 14-point review of systems was completed and all were negative. PHYSICAL EXAMINATION: General: Mr. Burrows is a 74-year-old male who is lying in bed. He appears to be in no acute distress. He appears stated age. HEENT: EOMs intact. Sclerae without icterus. Oral mucosa is moist without lesions. Posterior pharynx is clear. Neck: Supple. No pain upon palpation. Respiratory: Symmetrical chest expansion. No accessory muscle use. Lungs are clear to auscultation. No rhonchi, wheezes, or rubs. CV: Regular rate and rhythm. S1, S2 present. No murmurs, rubs, or gallops. Abdomen: Abdomen is soft, nontender. Bowel sounds normoactive. Extremities: No edema. Skin is warm and smooth bilaterally. Pedal pulses 2+ bilaterally. Musculoskeletal: No pain or deformities. Skin: Skin is grossly intact. LABORATORY DATA: WBC 7.7, hemoglobin 12.7, hematocrit 37, platelets 322. Sodium 137, potassium 4.6, chloride 106, carbon dioxide 26, BUN 12, creatinine 0.71. DISCHARGE PLAN/FOLLOWUP: 1. Pulmonary embolism: It is unclear whether these pulmonary embolisms were provoked or not. Either way, the patient has had a hypercoagulable panel sent for further evaluation. He has also been started on treatment of Eliquis. We do not have the results of the hypercoagulable panel at this time; therefore, I have encouraged the patient to follow up with primary care for these results. His primary care can also decide whether or not the patient warrants outpatient hematology evaluation. 2. DVT: As mentioned above, the patient does have a noted nonocclusive DVT in left lower extremity. The patient is currently on treatment dose of Eliquis. Once again, the patient's hypercoagulable workup is pending and he can follow up with his primary care for results and discuss possible referral to Hematology -Oncology. 3. Atrial fibrillation: The patient carries a history of atrial fibrillation, but had never been caught on a Holter monitor. The patient did have an episode of AFib with RVR while here in the hospital. The patient was evaluated by Dr. Pelayo, Cardiology. The patient was started on metoprolol succinate 25 mg p.o. daily. The patient is to follow up with Dr. Pelayo in approximately 1 month. 4. Recent pneumonia: The patient was admitted currently under the treatment of pneumonia in the form of Ceftin. The patient should complete his course of antibiotics. 5. Hernia: The patient carries a history of hernia. He can follow up with his primary care provider for this. 6. Followup: The patient should follow up with his primary care in 1 to 3 days. The patient should follow up with Cardiology in 1 month. Whether or not the patient should follow up with Hematology can be decided by primary care provider. 7. Education: The patient was educated on signs and symptoms, any worsening condition and when to return to the emergency department. The patient stated understanding. This is a summarized report of a complex medical history and hospital stay. For further details, please see the entire medical record. TIME SPENT: Approximately 45 minutes was spent on this admission, greater than half of that time was spent [id number] with the patient discussing discharge plans and instructions. This case has been reviewed with my attending, Dr. Karine Perdue, who is in agreement with the plan of care. JILLIAN HSIEH, STATION ENGINEER [employer]IN [employer] [id number]/[facility] #: [id number] DEREK
[2020-01-02 15:47] LABS: LAC APTT 33 sec (25 - 37); LAC INR 1.2 (0.9-1.1); Prothrombin Time(LAC) 13.3 sec (9.4 - 12.5)
[2020-01-03 14:19] LABS: Phospholipid Ab IgG < 9.4 GPL; Phospholipid Ab IgM, S 13.5 MPL
[2020-01-05 16:45] LABS: Factor V Leiden Mutation Negative (Negative); Prothrombin 20210 Mutation Negative (Negative)
[2020-01-08] MEDS ORDERED: Apixaban* 5 MG TAB PO SCH (09:00)
== END 2020-01-01 15:10 | disposition home or self-care (01) ==
LOC: ED 18:37 → MEDTELE 20:11
PROVIDERS: ADMIT Nurse Practitioner Family; ATTEND Internal Medicine
DX: I48.91 Unspecified atrial fibrillation (principal); K46.9 Unspecified abdominal hernia without obstruction or gangrene; R06.02 Shortness of breath; Z87.891 Personal history of nicotine dependence; Z79.899 Other long term (current) drug therapy; J90 Pleural effusion, not elsewhere classified; R07.9 Chest pain, unspecified; J98.8 Other specified respiratory disorders; R00.2 Palpitations; J18.9 Pneumonia, unspecified organism
CPT/HCPCS: 36415; 80048; 80053; 81240; 81241; 83090; 83735; 83880; 84443; 84484; 85025; 85300; 85303; 85306; 85307; 85610; 85613; 85730; 86147; 93005; 93306; 93970; 99284; A9270-GY; G0378